=== PATIENT | female | born 1985 | race Caucasian/White ===

== ENCOUNTER 2017-02-10 11:23 | Inpatient (IN) | payer BC ==
[2017-02-10 12:13] VITALS: BMI 25.4
--- NOTE | 2017-02-10 15:54 | HP ---
COWS - Scale Resting Pulse: 2= [place] 101-120 Sweatin=Flushed/Facial Moisture Restless Observation: 3= Extraneous Movement Pupil Size: 2= Moderately Dilated Bone or Joint Aches: 2= Severe Diffuse Aches Runny Nose/ Eye Tearin= Runny Nose/Eyes GI Upset > 30mins: 2= Nausea/Diarrhea Tremor Observation: 2= Slight Tremor Visible Yawning Observation: 1= 1-2x During Session Anxiety or Irritability: 2=Irritable/Anxious Goose Flesh Skin: 3=Piloerection COWS Score: 23 CIWA Score - CIWA Score Nausea/Vomitin Muscle Tremors: 4-Moderate,w/Arms Extend Anxiety: 4-Mod. Anxious/Guarded Agitation: 4-Moderately Restless Paroxysmal Sweats: 3 Orientation: 0-Oriented Tacttile Disturbances: 1-Very Mild Itch/Numbness Auditory Disturbances: 0-None Visual Disturbances: 0-None Headache: 3-Moderate CIWA-Ar Total Score: 22 Admission ROS BHS - HPI Chief Complaint: Withdrawal sx. Allergies/Adverse Reactions: Allergies Allergy/AdvReac Type Severity Reaction Status Date / Time No Known Allergies Allergy Verified 02/10/17 15:00 History of Present Illness: 31 y/o woman with a long hx. of opioid dependence is admitted for detox. Pt. denies previous detox. Exam Limitations: No Limitations - Ebola screening Have you traveled outside of the country in the last 21 days: No Have you had contact with anyone from an Ebola affected area: No Have you been sick,other than usual withdrawal symptoms: No Do you have a fever: No - Review of Systems Constitutional: Diaphoresis EENT: reports: Nose Congestion Respiratory: reports: No Symptoms reported Cardiac: reports: No Symptoms Reported GI: reports: Nausea, Abdominal cramping : reports: No Symptoms Reported Musculoskeletal: reports: Back Pain, Joint Pain, Muscle Pain Neuro: reports: Headache, Tingling, Tremors Endocrine: reports: No Symptoms Reported Hematology: reports: No Symptoms Reported Psychiatric: reports: No Sypmtoms Reported Other Systems: Reviewed and Negative Patient History - Patient Medical History Hx Anemia: No Hx Asthma: No Hx Chronic Obstructive Pulmonary Disease (COPD): No Hx Cancer: No Hx Cardiac Disorders: No Hx Congestive Heart Failure: No Hx Hypertension: No Hx Hypercholesterolemia: No Hx Pacemaker: No HX Cerebrovascular Accident: No Hx Seizures: No Hx Dementia: No Hx Diabetes: No Hx Gastrointestinal Disorders: No Hx Liver Disease: No Hx Genitourinary Disorders: No Hx Sexually Transmitted Disorders: No Hx Renal Disease (ESRD): No Hx Thyroid Disease: No Hx Human Immunodeficiency Virus (HIV): No Hx Hepatitis C: No Hx Depression: Yes (was on wellbutrin) Hx Suicide Attempt: No Hx Bipolar Disorder: Yes Hx Schizophrenia: No - Patient Surgical History Past Surgical History: Yes Other Surgical History: rt, carpal tunnel rt. hand 2016 Anesthesia Reaction: No - PPD History Previous Implant?: Yes Documented Results: Negative w/o proof Results: 0 mm PPD to be Administered?: Yes - Reproductive History Last Menstrual Period: 01/08/17 Patient : No - Smoking Cessation Smoking history: Current every day smoker Have you smoked in the past 12 months: Yes Aproximately how many cigarettes per day: 20 Hx Chewing Tobacco Use: No Initiated information on smoking cessation: Yes 'Breaking Loose' booklet given: 02/10/17 - Substance & Tx. History Hx Alcohol Use: Yes Hx Substance Use: Yes Substance Use Type: Heroin Hx Substance Use Treatment: No - Substances Abused Heroin Route: Injection Frequency: Daily Amount used: 2 bundles Age of first use: 30 Date of Last Use: 02/10/17 Benzodiazepine (Klonopin) Route: Oral Frequency: Daily Amount used: 4-6 mg Age of first use: 29 Date of Last Use: 02/08/17 Alprazolam (Xanax) Route: Oral Frequency: Daily Amount used: 4 mg Age of first use: 29 Date of Last Use: 02/09/17 Alcohol Route: Oral Frequency: Daily Amount used: Beer 1(6apck) Age of first use: 23 Date of Last Use: 02/09/17 Family Disease History - Family Disease History Family Disease History: Other: Brother (heroin), Sister (opioid) Admission Physical Exam BHS - Vital Signs Vital Signs: Vital Signs - 24 hr 02/10/17 12:09 Temperature 97.8 F Pulse Rate 103 H Respiratory 20 Rate Blood Pressure 127/80 - Physical General Appearance: Yes: Tremorous, Irritable, Sweating, Anxious HEENTM: Yes: Nasal Congestion, Rhinorrhea Respiratory: Yes: Chest Non-Tender, Lungs Clear, Normal Breath Sounds Neck: Yes: Supple Breast: Yes: Breast Exam Deferred Cardiology: Yes: Regular Rhythm, Regular Rate, S1, S2 Abdominal: Yes: Normal Bowel Sounds, Non Tender, Flat, Soft Genitourinary: Yes: Within Normal Limits Back: Yes: Within Normal Limits Musculoskeletal: Yes: Within Normal Limits Extremities: Yes: Tremors Neurological: Yes: Fully Oriented, Alert Integumentary: Yes: Diaphoresis, Track [place] Lymphatic: Yes: Within Normal Limits - Diagnostic (1) Opioid dependence with withdrawal Current Visit: Yes Status: Acute (2) Sedative, hypnotic or anxiolytic dependence with withdrawal, uncomplicated Current Visit: Yes Status: Acute (3) Alcohol dependence with uncomplicated withdrawal Current Visit: Yes Status: Acute Cleared for Admission [facility] - Detox or Rehab [facility] Level of Care: Medically Managed Detox Regimen/Protocol: Methadone [facility] Breath Alcohol Content Breath Alcohol Content: 0 Urine Pregancy Test - Result Urine Test Results: Negative- NO Line Present Urine Drug Screen - Results Drug Screen Negative: No Urine Drug Screen Results: MAGUI-Cocaine, OPI-Opiates, OXY-Oxycodone
[2017-02-10] MEDS ORDERED: MAGNESIUM CITRATE 300 ML BOTTLE PO PRN (16:08)
[2017-02-10] MEDS ORDERED: METHADONE HCL 10 MG TABLET (FOR DETOX USE ONLY) PO ONE ×2 (16:08→23:00)
[2017-02-10] MEDS ORDERED: P-EPHED 60MG/TRIPROLIDI 2.5MG TABLET PO PRN (16:08)
[2017-02-10] MEDS ORDERED: guaiFENesin/D-METHORPHAN HB 10 ML UNIT-DOSE CUPS PO PRN (16:08)
[2017-02-10] MEDS ORDERED: LOPERAMIDE HCL 2 MG CAPSULE PO PRN (16:08)
[2017-02-10] MEDS ORDERED: MENTHOL/PHENOL 1 EACH UD MM PRN (16:08)
[2017-02-10] MEDS ORDERED: MAG HYDROX/AL HYDROX/SIMETH 30 ML UNIT-DOSE CUP PO PRN (16:08)
[2017-02-10] MEDS ORDERED: diazePAM 5 MG TABLET PO ONE (16:08)
[2017-02-10] MEDS ORDERED: MAGNESIUM HYDROX 2400MG/30ML ORAL SUSPENSION 30 ML CUP PO PRN (16:08)
[2017-02-10] MEDS ORDERED: ACETAMINOPHEN 325 MG TABLET (FP) PO PRN (16:08)
[2017-02-10] MEDS: NICOTINE 21 MG/24 HOURS TOPICAL PATCH TD SCH (16:52)
[2017-02-10] MEDS: NICOTINE POLACRILEX 2 MG GUM BC PRN ×2 (19:22→22:33)
[2017-02-10] MEDS: diazePAM 5 MG TABLET PO SCH (22:30)
[2017-02-10] MEDS: diphenhydrAMINE HCL 50 MG CAPSULE PO PRN (22:30)
[2017-02-10] MEDS: THIAMINE HCL 100 MG TABLET (FP) PO SCH (22:30)
[2017-02-11] MEDS: diazePAM 5 MG TABLET PO SCH ×3 (05:28→22:34)
--- NOTE | 2017-02-11 09:16 | CONSULT ---
[facility] Psychiatric Consult - Data Date of interview: 02/11/17 Admission source: [facility] Identifying data: This is 31 years old female with no psychiatric hospitalization history intoxicated with Alcohol, Opioids, Xanax Substance Abuse History: Benzodiazepine (Klonopin). Route: Oral. Frequency : Daily. Amount used: 4-6 mg. Age of first use: 29. Date of Last Use: . Alprazolam (Xanax). Route: Oral. Frequency: Daily. Amount used: 4 mg. Age of first use: 29. Date of Last Use: 02/09/17. Alcohol. Route: Oral. Frequency: Daily. Amount used: Beer 1(6apck). Age of first use: 23. Date of Last Use: 02/09/17 Medical History: Denies Psychiatric History: Denies Physical/Sexual Abuse/Trauma History: Denies Additional Comment: Obsedrvation. Detox Unit Care Protocol Mental Status Exam - Mental Status Exam Alert and Oriented to: Person Cognitive Function: Fair Patient Appearance: Unkempt Mood: Sad Affect: Flat Patient Behavior: Sedated Speech Pattern: Delayed Voice Loudness: Mildly Soft/Quiet Thought Process: Circumstantial Thought Disorder: Being Controlled Hallucinations: Denies Suicidal Ideation: Denies Homicidal Ideation: Denies Insight/Judgement: Fair Sleep: Difficulty falling asleep Appetite: Fair Muscle strength/Tone: Mild Hypotonicity Gait/Station: Shuffling Additional Comments: Obsedrvation. Detox Unit Care Protocol Psychiatric Findings - Problem List ([place] 1, 2,3) (1) Alcohol dependence with uncomplicated withdrawal Current Visit: Yes Status: Acute (2) Opioid dependence with withdrawal Current Visit: Yes Status: Acute (3) Sedative, hypnotic or anxiolytic dependence with withdrawal, uncomplicated Current Visit: Yes Status: Acute (4) Drug-induced mood disorder Current Visit: Yes Status: Suspected - Initial Treatment Plan Initial Treatment Plan: Obsedrvation. Detox Unit Care Protocol
[2017-02-11] MEDS ORDERED: METHADONE HCL 10 MG TABLET (FOR DETOX USE ONLY) PO SCH (10:00)
[2017-02-11 10:05] LABS: MCH 31.1 pg (25.7-33.7); MCHC 33.7 g/dl (32.0-36.0); MEAN CELL VOLUME 92.3 fl (80-96); MEAN PLT VOLUME 9.2 fl (7.5-11.1); PLATELET COUNT 245 K/MM3 (134-434); RDW 12.5 % (11.6-15.6); WHITE BLOOD COUNT 6.5 K/mm3 (4.0-10.0)
[2017-02-11 10:09] LABS: ALBUMIN 3.4 g/dl (3.4-5.0); ANION GAP 8 (8-16); BILIRUBIN,TOTAL 0.4 mg/dL (0.2-1.0); CALCIUM 9.2 mg/dL (8.5-10.1); CO2 26 mmol/L (21-32); CREATININE 0.6 mg/dL (0.55-1.02); GLUCOSE,RANDOM 93 mg/dL (74-106); SGPT/ALT 24 U/L (12-78); TOT PROT 6.9 g/dl (6.4-8.2)
[2017-02-11 10:42] LABS: ALK PHOS 69 U/L (45-117); SGOT/AST 12 U/L (15-37)
[2017-02-11] MEDS: diazePAM 5 MG TABLET PO PRN ×2 (10:58→17:20)
[2017-02-11] MEDS: PRENATAL VITAMINS W/ FOLIC ACID TABLET (FP) PO SCH (10:58)
[2017-02-11] MEDS: NICOTINE 21 MG/24 HOURS TOPICAL PATCH TD SCH (10:59)
[2017-02-11] MEDS: NICOTINE POLACRILEX 2 MG GUM BC PRN (11:00)
--- NOTE | 2017-02-11 11:33 | EKG ---
Test Reason : Blood Pressure : / mmHG Vent. Rate : 090 BPM Atrial Rate : 090 BPM P-R Int : 166 ms QRS Dur : 078 ms QT Int : 390 ms P-R-T Axes : 040 091 030 degrees QTc Int : 477 ms NORMAL SINUS RHYTHM RIGHTWARD AXIS BORDERLINE ECG NO PREVIOUS ECGS AVAILABLE Confirmed by JOYCELYN HARDIN MD ([id number]) on 02/11/2017 11:32:56 AM Referred By: Confirmed By:JOYCELYN HARDIN MD
--- NOTE | 2017-02-11 12:47 | PN ---
[facility] CIWA - CIWA Score Nausea/Vomitin Muscle Tremors: 3 Anxiety: 3 Agitation: 3 Paroxysmal Sweats: 3 Orientation: 0-Oriented Tacttile Disturbances: 2-Mild Itch/Numbness/Burn Auditory Disturbances: 0-None Visual Disturbances: 0-None Headache: 0-None Present CIWA-Ar Total Score: 17 S COWS - Scale Resting Pulse: 2= [place] 101-120 Sweatin= Chills/Flushing Restless Observation: 1= Difficult to Sit Still Pupil Size: 1= Pupils >than Normal Bone or Joint Aches: 2= Severe Diffuse Aches Runny Nose/ Eye Tearin= Nasal Congestion GI Upset > 30mins: 1= Stomach Cramp Tremor Observation of Outstretched Hands: 1= Tremor [place], Not Seen Yawning Observation: 0= None Anxiety or Irritability: 2=Irritable/Anxious Goose Flesh Skin: 0=Smooth Skin COWS Score: 12 S Progress Note (SOAP) Subjective: interrupted sleep, sweats, bodyaches Objective: 02/11/17 12:46 Vital Signs Temp 98.1 F 02/11/17 09:53 Pulse 100 H 02/11/17 09:53 Resp 18 02/11/17 09:53 BP 116/70 02/11/17 09:53 Pulse Ox Intake & Output 02/10/17 02/11/17 02/11/17 23:59 11:59 23:59 Weight 139 lb Other: Voiding Method Toilet Height 5 ft 2 in Body Mass Index (BMI) 25.4 Weight Measurement Method Standing Scale Vital Signs Temperature 98.1 F 02/11/17 09:53 Pulse Rate 100 H 02/11/17 09:53 Respiratory Rate 18 02/11/17 09:53 Blood Pressure 116/70 02/11/17 09:53 O2 Sat by Pulse Oximetry (%) Laboratory Tests 02/11/17 02/11/17 02/11/17 08:00 08:00 08:00 WBC 6.5 RBC 4.57 Hgb 14.2 Hct 42.2 MCV 92.3 MCHC 33.7 RDW 12.5 Plt Count 245 MPV 9.2 Sodium 141 Potassium 4.4 Chloride 107 Carbon Dioxide 26 Anion Gap 8 BUN 7 Creatinine 0.6 Creat Clearance w eGFR > 60 Random Glucose 93 Calcium 9.2 Total Bilirubin 0.4 AST 12 L ALT 24 Alkaline Phosphatase 69 Total Protein 6.9 Albumin 3.4 RPR Titer Nonreactive pt aox3 ambulating in nad 02/11/17 16:13 Assessment: 02/11/17 12:47 withdrawal sx's 02/11/17 16:13 Plan: cont. detox increase fluids motrin prn
[2017-02-11 18:21] LABS: URINE APPEARANCE CLEAR; URINE BILIRUBIN NEGATIVE (NEGATIVE); URINE BLOOD NEGATIVE (NEGATIVE); URINE COLOR LTYELLOW; URINE GLUCOSE (UA) NEGATIVE (NEGATIVE); URINE KETONE NEGATIVE (NEGATIVE); URINE LEUK ESTERASE NEGATIVE (NEGATIVE); URINE NITRITE NEGATIVE (NEGATIVE); URINE PROTEIN NEGATIVE (NEGATIVE); URINE UROBILINOGEN NEGATIVE E.U./dl (0.2-1.0)
[2017-02-11] MEDS: hydrOXYzine PAMOATE 50 MG CAPSULE (FP) PO PRN (22:34)
[2017-02-11] MEDS: THIAMINE HCL 100 MG TABLET (FP) PO SCH (22:34)
[2017-02-11] MEDS: IBUPROFEN 400 MG TABLET (FP) PO PRN (22:36)
[2017-02-12] MEDS: PRENATAL VITAMINS W/ FOLIC ACID TABLET (FP) PO SCH (10:54)
[2017-02-12] MEDS: NICOTINE 21 MG/24 HOURS TOPICAL PATCH TD SCH (10:55)
[2017-02-12] MEDS: diazePAM 5 MG TABLET PO SCH ×2 (10:55→22:22)
[2017-02-12] MEDS: METHADONE HCL 5 MG TABLET (FOR DETOX USE ONLY) PO SCH (10:55)
[2017-02-12] MEDS: NICOTINE POLACRILEX 2 MG GUM BC PRN (10:58)
--- NOTE | 2017-02-12 11:06 | PN ---
S CIWA - CIWA Score Nausea/Vomitin Muscle Tremors: 3 Anxiety: 2 Agitation: 2 Paroxysmal Sweats: 3 Orientation: 0-Oriented Tacttile Disturbances: 2-Mild Itch/Numbness/Burn Auditory Disturbances: 0-None Visual Disturbances: 0-None Headache: 0-None Present CIWA-Ar Total Score: 14 BHS COWS - Scale Resting Pulse: 1= [place] 81-100 Sweatin= Chills/Flushing Restless Observation: 1= Difficult to Sit Still Pupil Size: 1= Pupils >than Normal Bone or Joint Aches: 1= Mild Discomfort Runny Nose/ Eye Tearin= Nasal Congestion GI Upset > 30mins: 1= Stomach Cramp Tremor Observation of Outstretched Hands: 1= Tremor [place], Not Seen Yawning Observation: 1= 1-2x During Session Anxiety or Irritability: 1=Feels Anxious/Irritable Goose Flesh Skin: 0=Smooth Skin COWS Score: 10 S Progress Note (SOAP) Subjective: interrupted sleep, sweats , smild shakes . Objective: 02/12/17 11:04 Vital Signs Temperature 98.4 F 02/12/17 10:04 Pulse Rate 93 H 02/12/17 10:04 Respiratory Rate 18 02/12/17 10:04 Blood Pressure 123/68 02/12/17 10:04 O2 Sat by Pulse Oximetry (%) Laboratory Tests 02/11/17 02/11/17 02/11/17 08:00 08:00 08:00 WBC 6.5 RBC 4.57 Hgb 14.2 Hct 42.2 MCV 92.3 MCHC 33.7 RDW 12.5 Plt Count 245 MPV 9.2 Sodium 141 Potassium 4.4 Chloride 107 Carbon Dioxide 26 Anion Gap 8 BUN 7 Creatinine 0.6 Creat Clearance w eGFR > 60 Random Glucose 93 Calcium 9.2 Total Bilirubin 0.4 AST 12 L ALT 24 Alkaline Phosphatase 69 Total Protein 6.9 Albumin 3.4 Urine Color Urine Appearance Urine pH Ur Specific [place] Urine Protein Urine Glucose (UA) Urine Ketones Urine Blood Urine Nitrite Urine Bilirubin Urine Urobilinogen Ur Leukocyte Esterase RPR Titer Nonreactive 02/11/17 13:15 WBC RBC Hgb Hct MCV MCHC RDW Plt Count MPV Sodium Potassium Chloride Carbon Dioxide Anion Gap BUN Creatinine Creat Clearance w eGFR Random Glucose Calcium Total Bilirubin AST ALT Alkaline Phosphatase Total Protein Albumin Urine Color Ltyellow Urine Appearance Clear Urine pH 9.0 H Ur Specific [place] 1.008 Urine Protein Negative Urine Glucose (UA) Negative Urine Ketones Negative Urine Blood Negative Urine Nitrite Negative Urine Bilirubin Negative Urine Urobilinogen Negative Ur Leukocyte Esterase Negative RPR Titer pt aox3 in nad ambualting 02/12/17 11:05 Assessment: 02/12/17 11:05 withdrawal sx's Plan: cont. detox increase fluids flexeril 10mg tid/prn
[2017-02-12] MEDS: diazePAM 5 MG TABLET PO PRN (17:26)
[2017-02-12] MEDS: diphenhydrAMINE HCL 50 MG CAPSULE PO PRN (22:21)
[2017-02-12] MEDS: THIAMINE HCL 100 MG TABLET (FP) PO SCH (22:21)
[2017-02-12] MEDS: CYCLOBENZAPRINE HCL 10 MG TABLET (FP) PO PRN (22:21)
[2017-02-13] MEDS ORDERED: ONDANSETRON *ODT* 4 MG TABLET SL PRN (09:58)
[2017-02-13] MEDS: CYCLOBENZAPRINE HCL 10 MG TABLET (FP) PO PRN ×2 (10:49→22:36)
[2017-02-13] MEDS: diazePAM 5 MG TABLET PO SCH ×2 (10:49→22:36)
[2017-02-13] MEDS: METHADONE HCL 5 MG TABLET (FOR DETOX USE ONLY) PO SCH (10:49)
[2017-02-13] MEDS: PRENATAL VITAMINS W/ FOLIC ACID TABLET (FP) PO SCH (10:49)
[2017-02-13] MEDS: NICOTINE 21 MG/24 HOURS TOPICAL PATCH TD SCH (10:50)
[2017-02-13] MEDS: NICOTINE POLACRILEX 2 MG GUM BC PRN ×3 (10:52→17:25)
[2017-02-13] MEDS: IBUPROFEN 400 MG TABLET (FP) PO PRN ×2 (13:26→22:38)
[2017-02-13] MEDS: diazePAM 5 MG TABLET PO PRN (13:27)
--- NOTE | 2017-02-13 13:53 | PN ---
BHS Progress Note (SOAP) Subjective: interrupted sleep, sweats shakes, achy, anxious , nausea Objective: 02/13/17 13:51 Vital Signs Temperature 98.4 F 02/13/17 11:00 Pulse Rate 93 H 02/13/17 11:00 Respiratory Rate 16 02/13/17 11:00 Blood Pressure 100/63 02/13/17 11:00 O2 Sat by Pulse Oximetry (%) Laboratory Tests 02/11/17 02/11/17 02/11/17 08:00 08:00 08:00 WBC 6.5 RBC 4.57 Hgb 14.2 Hct 42.2 MCV 92.3 MCHC 33.7 RDW 12.5 Plt Count 245 MPV 9.2 Sodium 141 Potassium 4.4 Chloride 107 Carbon Dioxide 26 Anion Gap 8 BUN 7 Creatinine 0.6 Creat Clearance w eGFR > 60 Random Glucose 93 Calcium 9.2 Total Bilirubin 0.4 AST 12 L ALT 24 Alkaline Phosphatase 69 Total Protein 6.9 Albumin 3.4 Urine Color Urine Appearance Urine pH Ur Specific [place] Urine Protein Urine Glucose (UA) Urine Ketones Urine Blood Urine Nitrite Urine Bilirubin Urine Urobilinogen Ur Leukocyte Esterase RPR Titer Nonreactive 02/11/17 13:15 WBC RBC Hgb Hct MCV MCHC RDW Plt Count MPV Sodium Potassium Chloride Carbon Dioxide Anion Gap BUN Creatinine Creat Clearance w eGFR Random Glucose Calcium Total Bilirubin AST ALT Alkaline Phosphatase Total Protein Albumin Urine Color Ltyellow Urine Appearance Clear Urine pH 9.0 H Ur Specific [place] 1.008 Urine Protein Negative Urine Glucose (UA) Negative Urine Ketones Negative Urine Blood Negative Urine Nitrite Negative Urine Bilirubin Negative Urine Urobilinogen Negative Ur Leukocyte Esterase Negative RPR Titer pt aox3 in nad ambulating Assessment: 02/13/17 13:51 withdrawal sx.s anxiety Plan: cont detox increase fluids zofran flexeril vistaril prn
[2017-02-13] MEDS: hydrOXYzine PAMOATE 50 MG CAPSULE (FP) PO PRN (18:56)
[2017-02-13] MEDS: THIAMINE HCL 100 MG TABLET (FP) PO SCH (22:36)
[2017-02-14] MEDS ORDERED: diazePAM 5 MG TABLET PO SCH (10:00)
[2017-02-14] MEDS ORDERED: METHADONE HCL 10 MG TABLET (FOR DETOX USE ONLY) PO SCH (10:00)
[2017-02-14] MEDS: PRENATAL VITAMINS W/ FOLIC ACID TABLET (FP) PO SCH (10:56)
[2017-02-14] MEDS: CYCLOBENZAPRINE HCL 10 MG TABLET (FP) PO PRN ×2 (10:56→22:30)
[2017-02-14] MEDS: NICOTINE 21 MG/24 HOURS TOPICAL PATCH TD SCH (10:57)
[2017-02-14] MEDS: NICOTINE POLACRILEX 2 MG GUM BC PRN ×2 (10:59→13:35)
--- NOTE | 2017-02-14 11:26 | PN ---
BHS Progress Note (SOAP) Subjective: interrupted sleep, mild nausea, achy Objective: 02/14/17 11:25 Vital Signs Temperature 97.3 F L 02/14/17 10:20 Pulse Rate 87 02/14/17 10:20 Respiratory Rate 18 02/14/17 10:20 Blood Pressure 108/53 02/14/17 10:20 O2 Sat by Pulse Oximetry (%) pt aox3 in nad lying in bed Assessment: 02/14/17 11:26 withdrawal sx's Plan: cont. detox increase fluids motrin prn mylant prn d/c in a,m
[2017-02-14] MEDS: hydrOXYzine PAMOATE 50 MG CAPSULE (FP) PO PRN (13:34)
[2017-02-14] MEDS: diphenhydrAMINE HCL 50 MG CAPSULE PO PRN (22:30)
[2017-02-14] MEDS: THIAMINE HCL 100 MG TABLET (FP) PO SCH (22:30)
[2017-02-15] MEDS: hydrOXYzine PAMOATE 50 MG CAPSULE (FP) PO PRN (05:45)
[2017-02-15] MEDS ORDERED: METHADONE HCL 5 MG TABLET (FOR DETOX USE ONLY) PO SCH (06:00)
[2017-02-15 11:29] VITALS: BP 92/42; PULSE 112; TEMP 97.5
--- NOTE | 2017-02-15 12:36 | DS ---
[facility] Detox Discharge Summary Admission Date: 02/10/17 Discharge Date: 02/15/17 - History Present History: Alcohol Dependence, Opioid Dependence, Sedative Dependence Additional Comments: ADVISED PATIENT TO FOLLOW-UP WITH [facility] / REHAB MEDICAL PROVIDER AFTER DISCHARGE FROM DETOX FOR ABNORMAL LAB VALUES. Pertinent Past History: Depression Bi-Polar disorder. - Physical Exam Results Vital Signs: Vital Signs Temperature 97.5 F L 02/15/17 11:28 Pulse Rate 112 H 02/15/17 11:28 Respiratory Rate 18 02/15/17 11:28 Blood Pressure 92/42 02/15/17 11:28 O2 Sat by Pulse Oximetry (%) Pertinent Admission Physical Exam Findings: WITHDRAWAL SYMPTOMS. Laboratory Last Values WBC 6.5 K/mm3 (4.0-10.0) 02/11/17 08:00 RBC 4.57 M/mm3 (3.60-5.2) 02/11/17 08:00 Hgb 14.2 GM/dL (10.7-15.3) 02/11/17 08:00 Hct 42.2 % (32.4-45.2) 02/11/17 08:00 MCV 92.3 fl (80-96) 02/11/17 08:00 MCHC 33.7 g/dl (32.0-36.0) 02/11/17 08:00 RDW 12.5 % (11.6-15.6) 02/11/17 08:00 Plt Count 245 K/MM3 (134-434) 02/11/17 08:00 MPV 9.2 fl (7.5-11.1) 02/11/17 08:00 Sodium 141 mmol/L (136-145) 02/11/17 08:00 Potassium 4.4 mmol/L (3.5-5.1) 02/11/17 08:00 Chloride 107 mmol/L (98-107) 02/11/17 08:00 Carbon Dioxide 26 mmol/L (21-32) 02/11/17 08:00 Anion Gap 8 (8-16) 02/11/17 08:00 BUN 7 mg/dL (7-18) 02/11/17 08:00 Creatinine 0.6 mg/dL (0.55-1.02) 02/11/17 08:00 Creat Clearance w eGFR > 60 (>60) 02/11/17 08:00 Random Glucose 93 mg/dL (74-106) 02/11/17 08:00 Calcium 9.2 mg/dL (8.5-10.1) 02/11/17 08:00 Total Bilirubin 0.4 mg/dL (0.2-1.0) 02/11/17 08:00 AST 12 U/L (15-37) L 02/11/17 08:00 ALT 24 U/L (12-78) 02/11/17 08:00 Alkaline Phosphatase 69 U/L (45-117) 02/11/17 08:00 Total Protein 6.9 g/dl (6.4-8.2) 02/11/17 08:00 Albumin 3.4 g/dl (3.4-5.0) 02/11/17 08:00 Urine Color Ltyellow 02/11/17 13:15 Urine Appearance Clear 02/11/17 13:15 Urine pH 9.0 (5.0-8.0) H 02/11/17 13:15 Ur Specific [place] 1.008 (1.001-1.035) 02/11/17 13:15 Urine Protein Negative (NEGATIVE) 02/11/17 13:15 Urine Glucose (UA) Negative (NEGATIVE) 02/11/17 13:15 Urine Ketones Negative (NEGATIVE) 02/11/17 13:15 Urine Blood Negative (NEGATIVE) 02/11/17 13:15 Urine Nitrite Negative (NEGATIVE) 02/11/17 13:15 Urine Bilirubin Negative (NEGATIVE) 02/11/17 13:15 Urine Urobilinogen Negative E.U./dl (0.2-1.0) 02/11/17 13:15 Ur Leukocyte Esterase Negative (NEGATIVE) 02/11/17 13:15 RPR Titer Nonreactive (NONREACTIVE) 02/11/17 08:00 LABS NOTED. - Treatment Hospital Course: Detox Protocol Followed, Detoxed Safely, Responded well, Discharged Condition Good Patient has Accepted a Rehab Referral to: NO - PT. TO GO HOME AT THIS TIME; WILL PURSUE REHAB AT A LATER TIME. - Medication Discharge Medications: Ambulatory Orders NK [No Known Home Medication] 02/10/17 - Diagnosis (1) Alcohol dependence with uncomplicated withdrawal Status: Acute (2) Opioid dependence with withdrawal Status: Acute (3) Sedative, hypnotic or anxiolytic dependence with withdrawal, uncomplicated Status: Acute (4) Drug-induced mood disorder Status: Suspected - AMA Did Patient Leave Against Medical Advice: No
== END 2017-02-15 09:18 | disposition home or self-care (01) | DRG 773 ==
LOC: YASAS 11:23 → Y6N 15:20
PROVIDERS: ADMIT Internal Medicine; ATTEND Internal Medicine Addiction Medicine
PROC: HZ2ZZZZ Detoxification Services for Substance Abuse Treatment (ICD-10-PCS; principal; 2017-02-15)
DX: F11.23 Opioid dependence with withdrawal (principal); F13.230 Sedative, hypnotic or anxiolytic dependence with withdrawal, uncomplicated; F10.230 Alcohol dependence with withdrawal, uncomplicated; F19.24 Other psychoactive substance dependence with psychoactive substance-induced mood disorder
CPT/HCPCS: 36415; 80053; 81003; 85027; 86593; 93005; 93010